=== PATIENT | female | born 1945 | race Caucasian/White ===

== ENCOUNTER → 2017-07-12 | Outpatient (CLI) | payer OTHER ==
[~2017-07-12] MED LIST: ACETAMINOPHEN PO; ALLEGRA PO; ALLERGY10 M1 PO; AMLODIPINE BESYL5 MG PO; ASPIRIN81 M1; ASTELIN137 MCG INH; ASTEPRO205.5 MCG/; BECLOMETHASONE IN; BIAXIN PO; CAMBIA50 MG; CLARITIN10 M3 PO; CLARITIN10 MG PO; CRESTOR5 MG; FLONASE 0.05% N16 G1; FLONASE16 GM; FUROSEMIDE40 MG PO; GLUCOTROL PO; KLOR-CON PO; LASIX PO; LEVOTHROID88 MCG PO; LEVOTHYROXINE88 MCG PO; LEVOXYL88 MC1 PO; LEVOXYL88 MCG PO; LORTAB 7.5-5001 TAB PO; MOBIC PO; NORVASC2.5 MG PO; OMEPRAZOLE40 M1 PO; PLENDIL PO; PRILOSEC20 M1 PO; SYNTHROID PO; TOPROL XL 50 MG50 MG PO; TOPROL XL PO; TOPROL XL50 MG PO; TRAMADOL HCL50 M1 PO; VIT B6; ZANTAC PO; ZANTAC150 M1 PO; ZETIA PO
--- NOTE | ~2017-07-12 | CT71 ---
[facility] A Service [facility] RADIOLOGY TEXT RESULTS PATIENT: CINTHYA PADILLA LOCATION: [facility] : 43 UNIT #: [id number] AGE: [address]: Benedict Saldana MD SEX: F ORDER DR: [id number] [facility] [address] [place], [place] [address] [id number] O MR#: [id number] Acc #: [id number] NAME: CINTHYA PADILLA : 1945 SEX: F STUDY DATE/TIME: 07/12/2017 13:27 UNIT: [facility] ROOM: STUDY DESCRIPTION: CT Head Wo Contrast Attending Physician: Benedict Saldana Jr., M.D. Referring Physician: Benedict Saldana Jr., M.D. Ordering Physician: Benedict Saldana Jr., M.D. Primary Care Physician: Benedict Saldana Jr., M.D. MEDICAL IMAGING REPORT This report is preliminary unless electronic signature is present EXAM Head CT, no contrast PROCEDURE Axial unenhanced head CT. This CT exam was performed with one or more of the following radiation dose reduction techniques: Automatic exposure control, adjustment of mA and/or kV according to patient size, and iterative reconstruction. COMPARISON Prior head CT dated 10/10/2013. HISTORY Six-month history of near syncope and blurred vision. FINDINGS There is no intracranial hemorrhage or mass. There is no hydrocephalus or extraaxial fluid collection. Brain parenchymal density is normal. The extracranial soft tissues are normal. The skull base and calvarium are remarkable only for some ethmoid and sphenoid sinus mucosal thickening, and some TMJ osteoarthritis. There is also intracranial atherosclerotic vascular calcification. IMPRESSION No acute abnormality. Brain is normal and unchanged since the prior CT exam. Dictated by... Vasu Franklin M.D. [facility] A Service [facility] RADIOLOGY TEXT RESULTS PATIENT: CINTHYA PADILLA LOCATION: [facility] : 43 UNIT #: [id number] AGE: [address]: Benedict Saldana MD SEX: F ORDER DR: THIS IS AN ELECTRONICALLY VERIFIED REPORT Vasu Franklin M.D. at 07/14/2017 5:02 PM TEV/psc TD: 07/13/2017 00:58 JOB #: [id number] MEDICAL IMAGING REPORT Page 1 of 1 COPY
== END | disposition home or self-care (01) ==
LOC: CCAT 12:51
DX: R51 Headache (principal)
CPT/HCPCS: 70450